=== PATIENT | male | born 1950 | race Caucasian/White ===

== ENCOUNTER → 2021-09-15 04:05 | Outpatient (CLI) | payer MEDICARE, OTHER, SELFPAY ==
[2021-09-15 17:23] LABS: SARS-CoV-2 RNA PCR Positive
== END ==
PROVIDERS: PCP Family Medicine; Visit Provider Internal Medicine Gastroenterology
DX: U07.1 COVID-19 (principal)
CPT/HCPCS: C9803; U0003; U0005

== ENCOUNTER 2021-10-16 00:41 | Day surgery (SDC) | payer MEDICARE, OTHER, SELFPAY ==
[2021-09-06 14:29] VITALS: BMI 22.4
--- NOTE | 2021-09-15 16:12 | PM.HPGS ---
History of Present Illness History of Present Illness Consent: Risks, benefits, and alternatives have been discussed and questions answered. Patient agrees to proceed with procedure. 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 An EGD 2 years ago revealed Goldman's changes without dysplasia from 35-39 cm from the incisors. He is maintained on omeprazole 20 mg daily Review of Systems Review of Systems: All systems reviewed & are unremarkable except as noted in HPI and below PMFSH Social History Social History Years smoked: 1 Smoking status: Former smoker Tobacco type: cigars Alcohol intake: former Spiritual care concerns: No Meds Home Medications and Allergies Home Medications Medication Instructions Recorded Confirmed Type garlic 4,000 mg PO DAILY 09/06/21 09/06/21 History glucosamine esquivel 2KCl-chondroit 2 tablet PO DAILY 09/06/21 09/06/21 History [Glucosamine-Chondroitin 3X Str] losartan 100 mg PO DAILY 09/06/21 09/06/21 History mecobalamin (vitamin B12) 5,000 mcg PO DAILY 09/06/21 09/06/21 History multivitamin 1 tablet PO DAILY 09/06/21 09/06/21 History omeprazole [Prilosec] 20 mg PO DAILY PRN 09/06/21 09/06/21 History turmeric 400 mg PO DAILY 09/06/21 09/06/21 History Allergies Allergy/AdvReac Type Severity Reaction Status Date / Time No Known Allergies Allergy Unverified 09/06/21 14:22 Exam Const: General: alert Orientation/consciousness: patient oriented x3 Resp: Auscultation: clear to auscultation bilaterally Cardio: Rhythm: regular rhythm GI: GI Palp: Yes Soft to palpation and No Tenderness to palpation present (GI) Neuro: General: patient oriented x3 Assessment and Plan Assessment and plan (1) Goldman's esophagus: Code(s): K22.70 - 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
[2021-10-16 11:45] VITALS: BP 148/80; PULSE 64; RESP 18; TEMP 36.2; O2SAT 100
--- NOTE | 2021-10-16 11:47 | PM.HPGS ---
History of Present Illness History of Present Illness Consent: Risks, benefits, and alternatives have been discussed and questions answered. Patient agrees to proceed with procedure. Chief complaint: goldman's esophagus Narrative: Wolf Gallagher is a 71 year old male with a history of Goldman's esophagus. Review of Systems Review of Systems: All systems reviewed & are unremarkable except as noted in HPI and below PMFSH Social History Social History Years smoked: 1 Smoking status: Former smoker Tobacco type: cigars Alcohol intake: former Living arrangements: with family Spiritual care concerns: No Meds Home Medications and Allergies Home Medications Medication Instructions Recorded Confirmed Type garlic 4,000 mg PO DAILY 09/06/21 09/06/21 History glucosamine esquivel 2KCl-chondroit 2 tablet PO DAILY 09/06/21 09/06/21 History [Glucosamine-Chondroitin 3X Str] losartan 100 mg PO DAILY 09/06/21 09/06/21 History mecobalamin (vitamin B12) 5,000 mcg PO DAILY 09/06/21 09/06/21 History multivitamin 1 tablet PO DAILY 09/06/21 09/06/21 History omeprazole [Prilosec] 20 mg PO DAILY PRN 09/06/21 09/06/21 History turmeric 400 mg PO DAILY 09/06/21 09/06/21 History Allergies Allergy/AdvReac Type Severity Reaction Status Date / Time No Known Allergies Allergy Verified 10/16/21 11:44 Exam Const: General: alert Orientation/consciousness: patient oriented x3 Resp: Auscultation: clear to auscultation bilaterally Cardio: Rhythm: regular rhythm GI: GI Palp: Yes Soft to palpation and No Tenderness to palpation present (GI) Neuro: General: patient oriented x3 Assessment and Plan Assessment and plan (1) Goldman's esophagus: Code(s): K22.70 - 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
[2021-10-16] MEDS: LACTATED RINGERS 1,000 ML 150 ML IV CONT (11:55)
--- NOTE | 2021-10-16 12:05 | WPDANESEPPF ---
Anes - Initial Pre Proc Eval Procedure: Operation Date: 10/16/21 13:00 Proposed Procedures p Esophagogastroduodenoscopy - Sidney Lay MD Date/Time: 10/16/21 12:05 Surgeon: Sidney Lay MD Pre Op Diagnosis: goldman's esophagus Patient Data Age: 71 Gender: M Height: 1.8 m Weight: 76 kg Last Vital Signs Temp 97.2 F L 10/16/21 11:45 Pulse 64 10/16/21 11:45 Resp 18 10/16/21 11:45 BP 148/80 H 10/16/21 11:45 Pulse Ox 100 10/16/21 11:45 Allergies Allergy/AdvReac Type Severity Reaction Status Date / Time No Known Allergies Allergy Verified 10/16/21 11:44 Home Medications Medication Instructions Recorded Confirmed Type garlic 4,000 mg PO DAILY 09/06/21 10/16/21 History glucosamine esquivel 2KCl-chondroit 2 tablet PO DAILY 09/06/21 10/16/21 History [Glucosamine-Chondroitin 3X Str] losartan 100 mg PO DAILY 09/06/21 10/16/21 History mecobalamin (vitamin B12) 5,000 mcg PO DAILY 09/06/21 10/16/21 History multivitamin 1 tablet PO DAILY 09/06/21 10/16/21 History omeprazole [Prilosec] 20 mg PO DAILY PRN 09/06/21 10/16/21 History turmeric 400 mg PO DAILY 09/06/21 10/16/21 History Patient hx anesthesia problems: none Family hx anesthesia problems: none Results Review: All pre-operative results and documents have been reviewed as part of the pre-operative evaluation. [facility] Past Medical History Medical History (Updated 10/16/21 @ 12:05 by Yohan Mckeon MD) Arthritis GERD (gastroesophageal reflux disease) Hypertension Mitral valve prolapse Social History Social History Years smoked: 1 Smoking status: Former smoker Tobacco type: cigars Alcohol intake: former Living arrangements: with family Spiritual care concerns: No Anes - Eval Final PreProcedure Day of Procedure 10/16/21 12:05 Patient weight: normal Heart: regular rate and rhythm Lungs: clear to auscultation Airway: Mallampati scale class II Neurological: alert and oriented Last oral intake: >/= 8 hours ASA classification: II Emergent: no Anesthetic plan: proceed Anesthesia type and monitoring: general GIVS and standard monitoring Results Review: All pre-operative results and documents have been reviewed as part of the pre-operative evaluation. Informed Consent: The patient's anesthetic plan and its attendant risks and benefits were discussed with the patient/family/POA. Questions were solicited and answers provided to the satisfaction of the patient/family/POA.
[2021-10-16] MEDS: BENZOCAINE (*SP) 60 ML SPRAY CAN (HURRICAINE) 1 SPRAY MUCOUS MEM (12:22)
[2021-10-16 12:35] VITALS: BP 122/59; PULSE 63; RESP 17; O2SAT 100
[2021-10-16 12:45] VITALS: BP 132/68; PULSE 67; RESP 18; O2SAT 99
[2021-10-16 12:55] VITALS: BP 141/75; PULSE 68; RESP 19; O2SAT 99
== END 2021-10-16 13:02 | disposition home or self-care (01) ==
PROVIDERS: PCP Family Medicine; Visit Provider Internal Medicine Gastroenterology
PROC: 0DJ08ZZ Inspection of Upper Intestinal Tract, Via Natural or Artificial Opening Endoscopic (ICD-10-PCS; CPT 43235; principal; 2021-10-16 13:00)
DX: K22.70 Barrett's esophagus without dysplasia (principal); M19.90 Unspecified osteoarthritis, unspecified site; K20.90 Esophagitis, unspecified without bleeding; K21.9 Gastro-esophageal reflux disease without esophagitis; I10 Essential (primary) hypertension; I34.1 Nonrheumatic mitral (valve) prolapse; Z87.891 Personal history of nicotine dependence
CPT/HCPCS: 43239; 88305; J2704; J7120

== ENCOUNTER 2022-07-05 09:07 | Outpatient (CLI) | payer MEDICARE, OTHER, SELFPAY ==
[2022-07-05 18:51] LABS: Basophils Absolute Auto 0.1 K/mm3 (0.0-0.1); Basophils Percent Auto 0.8 % (0.2-1.2); Eosinophils Absolute Auto 0.1 K/mm3 (0-0.3); Eosinophils Percent Auto 2.1 % (0-4.4); Hematocrit 45.3 % (42.0-52.0); Hemoglobin 15.6 g/dL (14.0-18.0); Immature Granulocyte Absolute 0.02 K/mm3 (0.00-0.031); Immature Granulocyte Percent A 0.3 % (0-0.5); Lymphocytes Absolute Auto 1.32 K/mm3 (0.9-3.2); Lymphocytes Percent Auto 19.9 % (18.3-44.2); Mean Corpuscular HGB Conc 34.4 g/dl (32-36); Mean Corpuscular Hemoglobin 32.2 pg (26-34); Mean Corpuscular Volume 93.4 fl (80-100); Mean Platelet Volume 9.1 fl (7.4-10.4); Monocytes Absolute Auto 0.5 K/mm3 (0.1-0.6); Monocytes Percent Auto 7.9 % (2.6-8.5); Neutrophils Absolute Auto 4.6 K/mm3 (1.3-6.7); Platelet Count Result 230 k/mm3 (150-375); Red Blood Count 4.85 M/mm3 (4.6-6.20); Red Cell Distribution Width 12.8 % (11.5-14.5); White Blood Count 6.6 K/mm3 (4.5-10.0)
[2022-07-05 18:52] LABS: Alanine Aminotransferase 26 U/L (6-50); Albumin Level 4.4 g/dL (3.5-5.1); Alkaline Phosphatase 68 U/L (38-126); Anion Gap 9 mmol/L (8-16); Aspartate Amino Transferase 50 U/L (17-59); Bilirubin,Total 0.5 mg/dL (0.2-1.3); Blood Urea Nitrogen 15 mg/dL (9-20); Calcium 9.1 mg/dL (8.4-10.2); Carbon Dioxide 27 mmol/L (22-30); Chloride 95 mmol/L (98-107); Cholesterol 182 mg/dL (0-200); Estimated Glomerular Filt Rate > 60; Glucose 108 mg/dL (65-110); HDL Direct 51 mg/dL; Potassium 4.7 mmol/L (3.4-5.0); Sodium 131 mmol/L (137-145); Triglycerides 56 mg/dL (<150)
[2022-07-05 19:04] LABS: LDL Cholesterol Direct 117 mg/dL
[2022-07-05 19:22] LABS: Prostate Specific Antigen 0.5 ng/mL (< OR = 4.0)
== END 2022-07-05 09:08 | disposition home or self-care (01) ==
LOC: ANHGOSHLAB 09:11
PROVIDERS: PCP Internal Medicine; Visit Provider Internal Medicine
DX: N52.9 Male erectile dysfunction, unspecified (principal); Z13.220 Encounter for screening for lipoid disorders; Z12.5 Encounter for screening for malignant neoplasm of prostate; I10 Essential (primary) hypertension
CPT/HCPCS: 36415; 80053; 80061; 84153; 85025; G0103

== ENCOUNTER 2023-01-29 11:48 | Emergency (ER) | payer MEDICARE, OTHER, SELFPAY ==
[2023-01-29 11:55] VITALS: BP 133/75; PULSE 83; RESP 18; TEMP 36.4; O2SAT 100
[2023-01-29 14:39] LABS: Basophils Percent Auto 0.2 % (0.2-1.2); Eosinophils Percent Auto 0.2 % (0-4.4); Hematocrit 41.7 % (42.0-52.0); Hemoglobin 14.3 g/dL (14.0-18.0); Immature Granulocyte Absolute 0.01 K/mm3 (0.00-0.031); Immature Granulocyte Percent A 0.2 % (0-0.5); Lymphocytes Absolute Auto 1.22 K/mm3 (0.9-3.2); Lymphocytes Percent Auto 20.5 % (18.3-44.2); Mean Corpuscular HGB Conc 34.3 g/dl (32-36); Mean Corpuscular Hemoglobin 32.3 pg (26-34); Mean Corpuscular Volume 94.1 fl (80-100); Mean Platelet Volume 8.8 fl (7.4-10.4); Monocytes Absolute Auto 0.6 K/mm3 (0.1-0.6); Monocytes Percent Auto 10.3 % (2.6-8.5); Neutrophils Absolute Auto 4.1 K/mm3 (1.3-6.7); Neutrophils Percent Auto 68.6 % (45.5-73.1); Platelet Count Result 171 k/mm3 (150-375); Red Blood Count 4.43 M/mm3 (4.6-6.20); Red Cell Distribution Width 13.2 % (11.5-14.5); White Blood Count 5.9 K/mm3 (4.5-10.0)
[2023-01-29 14:45] LABS: INR 1.1; Partial Thromboplastin Time 27.1 SECONDS (22.3-36.8); Prothrombin Time 13.4 Seconds (11.1-14.7)
[2023-01-29 14:46] LABS: Alanine Aminotransferase 25 U/L (6-50); Albumin Level 4.3 g/dL (3.5-5.1); Alkaline Phosphatase 54 U/L (38-126); Anion Gap 7 mmol/L (8-16); Aspartate Amino Transferase 34 U/L (17-59); Bilirubin,Total 0.8 mg/dL (0.2-1.3); Blood Urea Nitrogen 20 mg/dL (9-20); Calcium 8.6 mg/dL (8.4-10.2); Carbon Dioxide 29 mmol/L (22-30); Chloride 97 mmol/L (98-107); Estimated CRCL calculation 92 ml/min; Estimated Glomerular Filt Rate > 60; Glucose 87 mg/dL (65-110); Potassium 3.8 mmol/L (3.4-5.0); Sodium 133 mmol/L (137-145)
--- NOTE | 2023-01-29 14:49 | PC.NURSE ---
Pt and left before seeing doctor. Pt states they can not tolerate waiting anymore.
== END 2023-01-29 14:49 | disposition left against medical advice (07) ==
PROVIDERS: Emergency Provider General Practice; PCP Internal Medicine
DX: K92.2 Gastrointestinal hemorrhage, unspecified (principal); Z53.21 Procedure and treatment not carried out due to patient leaving prior to being seen by health care provider
CPT/HCPCS: 36415; 80053; 85025; 85610; 85730; 86850; 86900; 86901; 99199

== ENCOUNTER 2023-02-01 13:51 | Outpatient (CLI) | payer MEDICARE, OTHER, SELFPAY ==
[2023-02-01 14:41] LABS: Hematocrit 38.7 % (42.0-52.0); Hemoglobin 13.1 g/dL (14.0-18.0); Mean Corpuscular HGB Conc 33.9 g/dl (32-36); Mean Corpuscular Hemoglobin 31.5 pg (26-34); Mean Platelet Volume 9.4 fl (7.4-10.4); Platelet Count Result 204 k/mm3 (150-375); Red Blood Count 4.16 M/mm3 (4.6-6.20); Red Cell Distribution Width 12.9 % (11.5-14.5); White Blood Count 6.3 K/mm3 (4.5-10.0)
== END 2023-02-01 13:52 | disposition home or self-care (01) ==
LOC: ANHLAB 13:53
PROVIDERS: PCP Internal Medicine; Visit Provider Nurse Practitioner
DX: K22.70 Barrett's esophagus without dysplasia (principal); K92.0 Hematemesis; K92.1 Melena
CPT/HCPCS: 36415; 85027

== ENCOUNTER 2023-02-08 11:35 | Outpatient (CLI) | payer MEDICARE, OTHER, SELFPAY ==
[2023-02-08 12:10] LABS: Hematocrit 38.4 % (42.0-52.0)
== END 2023-02-08 11:36 | disposition home or self-care (01) ==
PROVIDERS: PCP Internal Medicine; Visit Provider Nurse Practitioner Family
DX: K92.0 Hematemesis (principal)
CPT/HCPCS: 36415; 85014; 85018

== ENCOUNTER 2023-07-08 08:37 | Outpatient (CLI) | payer MEDICARE, OTHER, SELFPAY ==
[2023-07-08 13:45] LABS: Basophils Percent Auto 0.5 % (0.2-1.2); Eosinophils Absolute Auto 0.3 K/mm3 (0-0.3); Eosinophils Percent Auto 3.6 % (0-4.4); Hematocrit 42.3 % (42.0-52.0); Immature Granulocyte Absolute 0.02 K/mm3 (0.00-0.031); Immature Granulocyte Percent A 0.2 % (0-0.5); Lymphocytes Absolute Auto 1.43 K/mm3 (0.9-3.2); Lymphocytes Percent Auto 16.5 % (18.3-44.2); Mean Corpuscular HGB Conc 33.1 g/dl (32-36); Mean Corpuscular Hemoglobin 31.2 pg (26-34); Mean Corpuscular Volume 94.2 fl (80-100); Mean Platelet Volume 9.9 fl (7.4-10.4); Monocytes Absolute Auto 0.7 K/mm3 (0.1-0.6); Neutrophils Absolute Auto 6.2 K/mm3 (1.3-6.7); Neutrophils Percent Auto 71.2 % (45.5-73.1); Platelet Count Result 186 k/mm3 (150-375); Red Blood Count 4.49 M/mm3 (4.6-6.20); Red Cell Distribution Width 13.1 % (11.5-14.5); White Blood Count 8.7 K/mm3 (4.5-10.0)
[2023-07-08 14:47] LABS: Sodium Urine Random 127 meq/L
[2023-07-08 19:14] LABS: Alanine Aminotransferase 22 U/L (6-50); Albumin Level 3.9 g/dL (3.5-5.1); Alkaline Phosphatase 51 U/L (38-126); Anion Gap 4 mmol/L (8-16); Aspartate Amino Transferase 37 U/L (17-59); Bilirubin,Total 0.4 mg/dL (0.2-1.3); Blood Urea Nitrogen 19 mg/dL (9-20); Calcium 8.5 mg/dL (8.4-10.2); Carbon Dioxide 31 mmol/L (22-30); Chloride 100 mmol/L (98-107); Estimated Glomerular Filt Rate > 60; Glucose 94 mg/dL (65-110); Potassium 4.4 mmol/L (3.4-5.0); Sodium 135 mmol/L (137-145)
[2023-07-08 19:46] LABS: Prostate Specific Antigen 0.4 ng/mL (< OR = 4.0)
[2023-07-08 20:16] LABS: Folic Acid 11.3 ng/mL (2.76->20)
[2023-07-10 14:04] LABS: Osmolality, Urine 664 mOsm/kg (50-1200)
== END 2023-07-08 08:38 | disposition home or self-care (01) ==
PROVIDERS: PCP Internal Medicine; Visit Provider Internal Medicine
DX: D64.9 Anemia, unspecified (principal); E87.1 Hypo-osmolality and hyponatremia; I10 Essential (primary) hypertension; Z12.5 Encounter for screening for malignant neoplasm of prostate; K22.70 Barrett's esophagus without dysplasia
CPT/HCPCS: 36415; 80053; 82607; 82728; 82746; 83935; 84153; 84300; 84443; 85025; G0103

== ENCOUNTER → 2023-07-16 11:05 | Outpatient (CLI) | payer MEDICARE, OTHER, SELFPAY ==
--- NOTE | ~2023-07-16 | XR_ITS ---
EXAMINATION: XR chest 2V Exam Date/Time: 07/16/2023 11:20 CDT HISTORY: low sodium levels htn Comparison: None. RESULT: Lines, tubes, and devices: None. Lungs and pleura: Mild senescent change. Streaky bibasilar atelectasis/scar. Cardiomediastinal silhouette: Stable. Other: No acute osseous or upper abdominal finding. IMPRESSION: No acute cardiopulmonary process. Reviewed, dictated and finalized at location K.
== END ==
PROVIDERS: PCP Internal Medicine; Visit Provider Internal Medicine
DX: E22.2 Syndrome of inappropriate secretion of antidiuretic hormone (principal)
CPT/HCPCS: 71046

== ENCOUNTER 2023-09-09 01:14 | Day surgery (SDC) | payer MEDICARE, OTHER, SELFPAY ==
[2023-08-28 13:31] VITALS: BMI 22.7
[2023-09-09 08:53] VITALS: BP 100/57; PULSE 73; RESP 16; TEMP 36.6; O2SAT 100; BMI 22.6
--- NOTE | 2023-09-09 09:02 | PM.HPGS ---
History of Present Illness History of Present Illness Consent: Risks, benefits, and alternatives have been discussed and questions answered. Patient agrees to proceed with procedure. Chief complaint: hematemesis,Corral's esophagus without dysplasia Narrative: Christopher Gallagher is a 73 year old male who is here for follow-up of Corral's esophagus. He also had hematemesis with coffee-ground material about 6 months ago. At that time his omeprazole dose was doubled to 20 mg b.i.d.. He is due for colonoscopy. At time of his last colonoscopy over 4 years ago his prep was suboptimal. Review of Systems Review of Systems: All systems reviewed & are unremarkable except as noted in HPI and below PMFSH Past Medical History Medical History Arthritis Carpal tunnel syndrome Surgery of both wrists 2000 Coffee ground emesis GERD (gastroesophageal reflux disease) Hypertension Mitral valve prolapse RUQ abdominal pain Screening for colon cancer Surgical History Surgical History H/O hernia repair 2020 Family History Family History Mother Hypertension Social History Social History Years smoked: 1 Smoking status: Never smoker Tobacco type: cigarettes and cigars Additional smoking assessment comments: Quit smoking 30 years ago Alcohol intake: former 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 Substance use: never Substance use type: does not use Lack of Transportation: No Lack of Food: Never True Current Housing: Decline to Answer Concerned About Future Housing: No Difficulty Paying Gas/Electric Bills: No Difficulty Paying for Meds: No Currently Unemployed: No Education: High School Diploma/GED Difficulty w/ Childcare or Family Care: No Living arrangements: other Additional living arrangements comments: with sp Spiritual care concerns: No Meds Home Medications and Allergies Home Medications Medication Instructions Recorded Confirmed Type multivitamin 1 tablet PO DAILY 09/06/21 09/09/23 History losartan 100 mg tablet 100 mg PO DAILY #90 tabs 02/04/23 09/09/23 Rx omeprazole 20 mg capsule,delayed 20 mg PO BID PRN Acid Reflux #90 07/08/23 09/09/23 Rx release caps Allergies Allergy/AdvReac Type Severity Reaction Status Date / Time No Known Allergies Allergy Verified 09/09/23 08:52 Vital Signs Vital Signs - 24 hr 09/09/23 08:53 Temperature 36.6 C Pulse Rate 73 Respiratory Rate 16 Blood Pressure 100/57 L Pulse Oximetry 100 Oxygen Delivery Room Air Exam Const: General: alert Orientation/consciousness: patient oriented x3 Resp: Auscultation: clear to auscultation bilaterally Cardio: Rhythm: regular rhythm GI: GI Palp: Yes Soft to palpation and No Tenderness to palpation present (GI) Neuro: General: patient oriented x3 Assessment and Plan Assessment and plan (1) Coffee ground emesis: Code(s): K92.0 - Hematemesis Status: Acute Assessment and Plan: EGD with possible biopsy or dilatation or cautery. (2) Corral's esophagus: Qualifiers: Corral's esophagus type: without dysplasia Qualified Code(s): K22.70 - Corral's esophagus without dysplasia Code(s): K22.70 - Corral's esophagus without dysplasia Status: Acute (3) Screening for colon cancer: Code(s): Z12.11 - Encounter for screening for malignant neoplasm of colon Status: Acute Assessment and Plan: Colonoscopy with possible biopsy or polypectomy or cautery or injection of substances.
[2023-09-09] MEDS: LACTATED RINGERS 1,000 ML 150 ML IV CONT (09:09)
--- NOTE | 2023-09-09 09:20 | WPDANESEPPF ---
Anes - Initial Pre Proc Eval Procedure: Operation Date: 09/09/23 10:00 Proposed Procedures p Esophagogastroduodenoscopy & Colonoscopy - Sidney Lay MD Date/Time: 09/09/23 09:20 Surgeon: Sidney Lay MD Pre Op Diagnosis: hematemesis,Corral's esophagus without dysplasia Patient Data Age: 73 Gender: M Height: 1.83 m Weight: 75.5 kg Last Vital Signs Temp 97.8 F 09/09/23 08:53 Pulse 73 09/09/23 08:53 Resp 16 09/09/23 08:53 BP 100/57 L 09/09/23 08:53 Pulse Ox 100 09/09/23 08:53 O2 Del Method Room Air 09/09/23 08:53 Allergies Allergy/AdvReac Type Severity Reaction Status Date / Time No Known Allergies Allergy Verified 09/09/23 08:52 Home Medications Medication Instructions Recorded Confirmed Type multivitamin 1 tablet PO DAILY 09/06/21 09/09/23 History losartan 100 mg tablet 100 mg PO DAILY #90 tabs 02/04/23 09/09/23 Rx omeprazole 20 mg capsule,delayed 20 mg PO BID PRN Acid Reflux #90 07/08/23 09/09/23 Rx release caps Patient hx anesthesia problems: none Family hx anesthesia problems: none Results Review: All pre-operative results and documents have been reviewed as part of the pre-operative evaluation. 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 Substance use: never Substance use type: does not use Lack of Transportation: No Lack of Food: Never True Current Housing: Decline to Answer Concerned About Future Housing: No Difficulty Paying Gas/Electric Bills: No Difficulty Paying for Meds: No Currently Unemployed: No Education: High School Diploma/GED Difficulty w/ Childcare or Family Care: No Living arrangements: other Additional living arrangements comments: with sp Spiritual care concerns: No Anes - Eval Final PreProcedure Day of Procedure 09/09/23 09:20 Patient weight: normal Heart: regular rate and rhythm Lungs: clear to auscultation Airway: Mallampati scale class II Neurological: alert and oriented Last oral intake: >/= 8 hours ASA classification: III Emergent: no Anesthetic plan: proceed Anesthesia type and monitoring: general GIVS and standard monitoring Results Review: All pre-operative results and documents have been reviewed as part of the pre-operative evaluation. Informed Consent: The patient's anesthetic plan and its attendant risks and benefits were discussed with the patient/family/POA. Questions were solicited and answers provided to the satisfaction of the patient/family/POA.
--- NOTE | 2023-09-09 09:43 | SUR.OPER ---
EGD START: 928; END: 933. COLONOSCOPY START: 941; END: 954.
[2023-09-09 10:00] VITALS: BP 111/61; PULSE 63; RESP 18; O2SAT 100
[2023-09-09 10:10] VITALS: BP 111/63; PULSE 60; RESP 15; O2SAT 100
[2023-09-09 10:20] VITALS: BP 129/76; PULSE 64; RESP 16; O2SAT 100
== END 2023-09-09 10:29 | disposition home or self-care (01) ==
PROVIDERS: PCP Internal Medicine; Visit Provider Internal Medicine Gastroenterology
PROC: 0DJ08ZZ Inspection of Upper Intestinal Tract, Via Natural or Artificial Opening Endoscopic (ICD-10-PCS; CPT 43235; principal; 2023-09-09 10:00)
DX: Z12.11 Encounter for screening for malignant neoplasm of colon (principal); K57.30 Diverticulosis of large intestine without perforation or abscess without bleeding; K22.70 Barrett's esophagus without dysplasia; K44.9 Diaphragmatic hernia without obstruction or gangrene; K31.A15 Gastric intestinal metaplasia without dysplasia, involving multiple sites; K21.00 Gastro-esophageal reflux disease with esophagitis, without bleeding; I10 Essential (primary) hypertension; F10.21 Alcohol dependence, in remission
CPT/HCPCS: 43239; G0121; 88305; J2001; J2704; J7120

== ENCOUNTER 2024-07-20 12:34 | Outpatient (CLI) | payer MEDICARE, OTHER, SELFPAY ==
[2024-07-20 14:45] LABS: Alanine Aminotransferase 27 U/L (6-50); Albumin Level 4.1 g/dL (3.5-5.1); Alkaline Phosphatase 60 U/L (38-126); Anion Gap 7 mmol/L (4-12); Aspartate Amino Transferase 60 U/L (17-59); Bilirubin,Total 0.7 mg/dL (0.2-1.3); Blood Urea Nitrogen 11 mg/dL (9-20); Calcium 8.9 mg/dL (8.4-10.2); Carbon Dioxide 30 mmol/L (22-30); Chloride 93 mmol/L (98-107); Cholesterol 187 mg/dL (0-200); Estimated Glomerular Filt Rate > 60; Glucose 95 mg/dL (65-110); HDL Direct 49 mg/dL; Potassium 4.1 mmol/L (3.4-5.0); Sodium 130 mmol/L (137-145); Triglycerides 76 mg/dL (<150)
[2024-07-20 14:51] LABS: Basophils Percent Auto 0.6 % (0.2-1.2); Eosinophils Absolute Auto 0.2 K/mm3 (0-0.3); Eosinophils Percent Auto 3.4 % (0-4.4); Hematocrit 43.5 % (42.0-52.0); Hemoglobin 14.5 g/dL (14.0-18.0); Immature Granulocyte Absolute 0.02 K/mm3 (0.00-0.031); Immature Granulocyte Percent A 0.3 % (0-0.5); Lymphocytes Absolute Auto 1.79 K/mm3 (0.9-3.2); Lymphocytes Percent Auto 25.4 % (18.3-44.2); Mean Corpuscular HGB Conc 33.3 g/dl (32-36); Mean Corpuscular Hemoglobin 31.5 pg (26-34); Mean Corpuscular Volume 94.4 fl (80-100); Mean Platelet Volume 9.1 fl (7.4-10.4); Monocytes Absolute Auto 0.7 K/mm3 (0.1-0.6); Monocytes Percent Auto 9.5 % (2.6-8.5); Neutrophils Absolute Auto 4.3 K/mm3 (1.3-6.7); Neutrophils Percent Auto 60.8 % (45.5-73.1); Platelet Count Result 186 k/mm3 (150-375); Red Blood Count 4.61 M/mm3 (4.6-6.20)
[2024-07-20 14:58] LABS: LDL Cholesterol Direct 113 mg/dL
[2024-07-20 15:17] LABS: Prostate Specific Antigen 0.5 ng/mL (< OR = 4.0)
== END 2024-07-20 12:35 | disposition home or self-care (01) ==
PROVIDERS: PCP Internal Medicine; Visit Provider Nurse Practitioner
DX: D64.9 Anemia, unspecified (principal); E87.1 Hypo-osmolality and hyponatremia; Z12.5 Encounter for screening for malignant neoplasm of prostate; Z13.220 Encounter for screening for lipoid disorders; N52.9 Male erectile dysfunction, unspecified
CPT/HCPCS: 36415; 80053; 80061; 84153; 85025; G0103

== ENCOUNTER 2024-07-30 12:03 | Outpatient (CLI) | payer MEDICARE, OTHER, SELFPAY ==
--- NOTE | ~2024-07-30 | CT_ITS ---
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 TECHNIQUE: Computed tomography (CT) of the chest was performed with 100 mL Omnipaque-350 intravenous contrast. Additional 3D reconstructions utilizing coronal maximum intensity projection (MIP) were per formed. Automated exposure control and iterative reconstruction technique were employed. The dose-ramirez gth product was 244.52 mGy-cm. COMPARISON: None FINDINGS: Minimal linear discoid atelectasis at the bilateral lower lobes. No pneumonia, suspicious pulmonary n odules, pulmonary edema or pleural effusion. Heart size is normal. Atherosclerotic coronary artery ca lcification. No pericardial effusion. There are calcified mediastinal lymph nodes consistent with old granulomatous disease. No pathologically enlarged thoracic lymphadenopathy. Small sliding-type hiata l hernia. 9 mm right renal artery aneurysm. Severe spondylosis at the cervicothoracic junction and up per lumbar spine. IMPRESSION: 1. No acute cardiopulmonary disease, pathologically enlarged lymphadenopathy or other lesions suspici ous for malignancy. 2. Small sliding-type hernia. Reviewed, dictated and finalized at location B. IMPRESSION: 1. No acute cardiopulmonary disease, pathologically enlarged lymphadenopathy or other lesions suspicious for malignancy. 2. Small sliding-type hernia.
--- NOTE | ~2024-07-30 | CT_ITS ---
EXAMINATION: CT brain & sinus wo con DATE: 07/30/2024 13:04 INDICATION: Syndrome of inappropriate secretion of antidiuretic hormone. TECHNIQUE: Computed tomography (CT) of the head was performed without intravenous contrast. CT of the paranasal sinuses was performed without intravenous contrast. The mA was adjusted according to patie nt size. Iterative reconstruction technique was employed. The dose-length product was 681.00 mGy-cm. COMPARISON: None. FINDINGS: Head CT: There is a 2.6 x 1.1 x 2.1 cm cystic mass with wall and septal calcifications posterior to left occip ital lobe. There is no acute ischemic infarct or intracranial hemorrhage. The ventricles are normal i n size. The orbits are normal. The mastoid air cells are normal. Sinuses CT: There is moderate mucosal thickening in the frontal, ethmoid, sphenoid, and maxillary sinuses. There is rightward deviation of the nasal septum. There are bilateral Bridget cells. The ostiomeatal units a re patent. There is mucosal thickening in the nasal cavities. IMPRESSION: 1. 2.6 cm cystic mass posterior to left occipital lobe, which may be an arachnoid cyst. Given the unu sual feature of calcifications, brain MRI without and with contrast is recommended to exclude neoplas m. 2. Mucosal thickening in the paranasal sinuses and nasal cavity, which may be sinonasal polyposis. Reviewed, dictated and finalized at location A. IMPRESSION: 1. 2.6 cm cystic mass posterior to left occipital lobe, which may be an arachno id cyst. Given the unusual feature of calcifications, brain MRI without and wit h contrast is recommended to exclude neoplasm. 2. Mucosal thickening in the paranasal sinuses and nasal cavity, which may be s inonasal polyposis.
== END 2024-07-30 12:04 | disposition home or self-care (01) ==
LOC: ANHIMG 12:08
PROVIDERS: PCP Internal Medicine; Visit Provider Nurse Practitioner
DX: E22.2 Syndrome of inappropriate secretion of antidiuretic hormone (principal); K44.9 Diaphragmatic hernia without obstruction or gangrene
CPT/HCPCS: 70450; 70486; 71260; Q9967

== ENCOUNTER 2024-07-31 08:37 | Outpatient (CLI) | payer MEDICARE, OTHER, SELFPAY ==
[2024-07-31 16:27] LABS: Cortisol Baseline 7.21 ug/dL
== END 2024-07-31 08:38 | disposition home or self-care (01) ==
LOC: ANHGOSHLAB 08:39
PROVIDERS: PCP Internal Medicine; Visit Provider Nurse Practitioner
DX: E22.2 Syndrome of inappropriate secretion of antidiuretic hormone (principal)
CPT/HCPCS: 36415; 82533

== ENCOUNTER 2024-08-23 08:21 | Outpatient (CLI) | payer MEDICARE, OTHER, SELFPAY ==
--- NOTE | ~2024-08-23 | MR_ITS ---
EXAMINATION: MR brain/brain stem wo/w con DATE: 08/23/2024 09:12 INDICATION: Other specified disorders of brain. TECHNIQUE: Magnetic resonance imaging (MRI) of the brain and brainstem was performed without and with 16 mL MultiHance intravenous contrast. COMPARISON: Head CT 07/30/2024 FINDINGS: There are scattered areas of nonspecific increased T2-weighted signal intensity in the cere bral white matter, which is within normal limits for the patient's age. There is a 2.4 x 1.1 cm cysti c mass with septations posterior to left occipital lobe. A 10 mm portion of the mass is not equal to cerebral spinal fluid in signal on FLAIR images, but does not restrict diffusion on diffusion-weighte d images. No enhancing component. The CT demonstrates small calcifications of the periphery and a sep chuyita. There is no acute ischemic infarct or acute intracranial hemorrhage. The ventricles are normal i n size. The orbits are normal. There is mucosal thickening in the paranasal sinuses. The mastoid air cells are normal. IMPRESSION: 1. 2.4 cm cystic mass posterior to left occipital lobe. This finding may be a chronic hematoma. Reviewed, dictated and finalized at location A. IMPRESSION: 1. 2.4 cm cystic mass posterior to left occipital lobe. This finding may be a c hronic hematoma.
== END 2024-08-23 08:22 | disposition home or self-care (01) ==
PROVIDERS: PCP Internal Medicine; Visit Provider Nurse Practitioner
DX: G93.89 Other specified disorders of brain (principal)
CPT/HCPCS: 70553; A9577